=== PATIENT | male | born 1975 | race Caucasian/White ===

== ENCOUNTER 2021-09-29 09:59 | Day surgery (SDC) | payer OTHER, SELFPAY ==
[2021-09-29 10:22] VITALS: BP 120/70; PULSE 50; RESP 16; TEMP 36.4; O2SAT 100; BMI 28.2
[2021-09-29] MEDS: LACTATED RINGERS 1,000 ML 150 ML IV (10:32)
--- NOTE | 2021-09-29 11:14 | PM.HP.1 ---
History of Present Illness History of Present Illness Date Patient Seen: 09/29/21 Time Patient Seen: 11:14 Chief complaint: SDC Narrative: Mello is a 46-year-old man who is here for colonoscopy for colon cancer screening. No known family history of colon cancer Patient History Medical History (Updated 09/29/21 @ 11:15 by Jean Carlos Soto MD) Normal exam Family & Social History Social History: household members children Tobacco & Substance use: Smoking Status Never smoker alcohol intake frequency a few times a week Substance Use Type does not use Meds Home Medications and Allergies Home Medications Medication Instructions Recorded Confirmed Type sodium sul 1.479 gram-potas ch See Rx Instructions PO PER PKG DIR 08/16/21 Rx 0.188 gram-magnes sul 0.225 gram #24 tabs tablet (Sutab) Allergies Allergy/AdvReac Type Severity Reaction Status Date / Time penicillin V Allergy Mild Verified 09/29/21 10:21 Exam Vital Signs (past 8 hours): - 09/29/21 10:22 Temperature 97.6 F Pulse Rate 50 L Respiratory Rate 16 Blood Pressure 120/70 Pulse Oximetry 100 Oxygen Delivery Method Room Air Oxygen Delivery Method Room Air Const General: healthy appearing Resp Effort & Inspection: normal respiratory effort Assessment & Plan Assessment and plan (1) Colon cancer screening: Status: Acute Plan 46-year-old man here for colonoscopy for colon cancer screening. We reviewed the risks and benefits and he would like to proceed. COVID-19 COVID-19 status: Negative Result date/Date tested (Pos, Neg/Pending): 09/28/21 Time Spent With Patient Critical Care time: I spent a total of [] minutes of critical care time on this patient's care today; this time is exclusive of procedural time.
[2021-09-29] MEDS: fentaNYL 250 MCG/5 ML INJ 100 MCG IV (11:21)
[2021-09-29] MEDS: MIDAZOLAM 5 MG/5 ML VIAL 4 MG IV (11:21)
--- NOTE | 2021-09-29 11:40 | PM.OP.COLON ---
Operative Date/Time/Diagnoses Date of procedure: 09/29/21 Time of procedure: 11:40 Pre-op diagnosis: Colon cancer screening Post-op diagnosis: same Procedure & Clinicians Study performed: Colonoscopy Same procedure as scheduled: Yes Surgeon: Jean Carlos Soto Procedure Notes Procedure in detail: Surgeon: Jean Carlos Soto MD Procedure: The patient was brought to the endoscopy suite, placed in left lateral decubitus position. The patient was connected to monitoring devices. A time-out was performed. Sedation was administered. Once the patient was adequately sedated, a digital rectal exam was performed and was normal. The scope was then inserted and advanced to the cecum where the appendiceal orifice was identified and photographed. The scope was then slowly withdrawn over greater than 6 minutes. The mucosa was thoroughly inspected. No polyps were noted. The scope was retroflexed in the rectum. No abnormalities were noted in the distal rectum. The scope was straightened and removed. The patient was awakened and brought to recovery. Versed: 4 mg Fentanyl: 100 mcg EBL: 0 Findings: Normal colon Scope withdrawal time: 9 Sedation minutes: 17 Post-procedure Recommendations: Colonoscopy in 10 years Disposition: PACU
[2021-09-29 11:43] VITALS: BP 118/75; PULSE 54; RESP 9; TEMP 35.8; O2SAT 98
[2021-09-29 11:47] VITALS: BP 115/73; PULSE 54; RESP 12; TEMP 36.1; O2SAT 98
[2021-09-29 11:53] VITALS: BP 128/86; PULSE 73; RESP 14; TEMP 36.2; O2SAT 99
[2021-09-29 11:58] VITALS: BP 128/87; PULSE 70; RESP 14; TEMP 36.2; O2SAT 99
== END 2021-09-29 12:05 | disposition home or self-care (01) ==
PROVIDERS: PCP Family Medicine; Referring Provider Surgery; Visit Provider Surgery
PROC: 0DJD8ZZ Inspection of Lower Intestinal Tract, Via Natural or Artificial Opening Endoscopic (ICD-10-PCS; CPT 45378; principal; 2021-09-29 11:15)
DX: Z12.11 Encounter for screening for malignant neoplasm of colon (principal)
CPT/HCPCS: G0121; 99152; J2250; J3010